=== PATIENT | female | born 1930 | race Caucasian/White ===

== ENCOUNTER 2017-12-08 19:44 | Inpatient (IN) ==
[2017-12-08] MEDS ORDERED: ONDANSETRON 4 MG/2 ML INJECTION IVP ONE (20:03)
[2017-12-08] MEDS ORDERED: NS 1,000 ML IV ONE (20:03)
[2017-12-08] MEDS ORDERED: SALINE FLUSH 10ml SYRINGE IVF PRN (20:03)
[2017-12-08] MEDS ORDERED: MORPHINE SULFATE 4mg INJECTION IVP ONE ×2 (20:03→21:34)
--- NOTE | 2017-12-08 20:45 | Emergency Department Report ---
Fall HPI - General Stated Complaint: Fall Time Seen by Provider: 12/08/17 20:03 Source: patient, family, EMS, RN notes reviewed, old records reviewed Mode of arrival: EMS Limitations: no limitations - History of Present Illness HPI Narrative: 87yo woman presented to the ER by EMS for evaluation after a fall. Pt fell and hit the back of her head; c/o headache. Also c/o severe, right hip pain. Pt has gross shortening/external rotation of her right leg. MD complaint: fall Onset (ago): minute(s) Fall from: standing Fall witnessed: no Place fall occurred: home Loss of consciousness: none Prolonged down time: no Symptoms prior to fall: none Context: tripped/slipped Location of injury: head Location of injury - extremities: Right: thigh Severity: severe Severity scale (1-10): 8 Quality: sharp, stabbing Associated symptoms (after fall): headache, unable to walk - Related Data Home Medications Medication Instructions Recorded Confirmed Acetaminophen [Tylenol] 650 mg PO BID PRN 10/19/17 12/08/17 Alendronate [Fosamax 70 mg] 70 mg PO Q7D 10/19/17 12/08/17 Atorvastatin [Lipitor] 10 mg PO HS 10/19/17 12/08/17 Calcium Carbonate/Vitamin D3 1 tab PO PM 10/19/17 12/08/17 [Calcium 500-Vit D3 200 Tablet] Cholecalciferol (Vitamin D3) 2,000 unit PO DAILY 10/19/17 12/08/17 [Vitamin D3] Cyanocobalamin (Vitamin B-12) 1,000 mcg PO DAILY 10/19/17 12/08/17 [Vitamin B-12] Metformin [Glucophage] 1,000 mg PO BID 10/19/17 12/08/17 Metoprolol Succinate [Toprol Xl] 100 mg PO WB 10/19/17 12/08/17 Rivaroxaban [Xarelto] 20 mg PO DAILY 10/19/17 12/08/17 Ondansetron [Zofran Odt] 4 mg PO QID PRN 12/08/17 12/08/17 Promethazine HCl [Phenergan] 25 mg RECTALLY PRN 12/08/17 12/08/17 Tramadol [Ultram] 50 mg PO BID PRN 12/08/17 12/08/17 Allergies Allergy/AdvReac Type Severity Reaction Status Date / Time No Known Allergies Allergy Verified 12/08/17 19:58 Review of Systems All systems: reviewed and negative except as stated Musculoskeletal: Reports: as per HPI, arthralgia. Denies: back pain, joint swelling, myalgia Neurological: Reports: as per HPI, headache. Denies: weakness, numbness, paresthesias, confusion, abnormal gait, vertigo [facility] Patient Stated Medical History Alzheimer's Disease Yes Dementia Yes Hypertension Yes Diabetes Mellitus Type 2 Yes Hx Renal Disease Yes: Chronic Kidney Disease, Kidney Cyst, Gout Anemia Yes Osteoarthritis Yes - Social History Smoking status: Unknown if ever smoked Physical Exam - Limitations Limitations: no limitations - General General appearance: alert, in no apparent distress, cachectic - Head Head exam: atraumatic, normocephalic, normal inspection - Eye Eye exam: Present: normal appearance, PERRL, EOMI. Absent: scleral icterus - ENT ENT exam: Present: normal exam, normal oropharynx, mucous membranes moist, normal external ear exam - Neck Neck exam: Present: normal inspection, full ROM, trachea midline. Absent: tenderness, lymphadenopathy - Chest Chest inspection: Present: normal inspection, symmetric chest wall rise. Absent : tenderness, rash - Respiratory Respiratory exam: Present: normal lung sounds bilaterally. Absent: respiratory distress, wheezes, stridor, prolonged expiratory phase, crackles - Cardiovascular Cardiovascular exam: Present: regular rate, irregular rhythm, normal heart sounds. Absent: rubs, gallop, clicks - Abdominal Exam Abdominal exam: Present: soft, normal bowel sounds. Absent: distention, tenderness, guarding, rebound, rigidity - Extremities Exam Extremities exam: Present: tenderness (Right hip), normal capillary refill. Absent: normal inspection, full ROM, pedal edema - Skin Skin exam: Present: warm, dry, intact. Absent: rash - Neurological Exam Neurological exam: Present: alert, oriented X3, CN II-XII intact, reflexes normal - Psychiatric Psychiatric exam: Present: normal affect, normal mood Course - Consultations Consultation #1: Ortho: Will evaluate/treat. Requests medical admission for mgmt. Time: 21:43 Consultation #2: [facility]: Time: 21:46 Vital Signs Respiratory Rate 18 12/08/17 20:35 Respiratory Rate 12/08/17 20:35 Fall - MDM Narrative Medical decision making narrative: Pt with right, intertrochanteric hip fx. No intracranial bleed. Hospitalist will admit for medical mgmt. Ortho to eval/fix. - Differential Diagnosis Likely: syncope, compression fracture (Hip fx), concussion with loss of consciousness, concussion without loss of consciousness - Medical Records Attestation: I reviewed the patient's medical records. - Lab Data Attestation: I reviewed the patient's lab results. Result diagrams: 12/08/17 20:04 12/08/17 20:04 Lab Results 12/08/17 12/08/17 Range/Units 20:04 20:04 WBC 10.1 (4.5-11.0) T/MM3 RBC 4.57 (4.00-5.20) M/MM3 Hgb 14.1 (12-16) GM/DL Hct 43.0 (36-46) % MCV 94.1 (80-100) UM3 MCH 30.9 (26-34) UUG MCHC 32.8 (31-37) GM/DL RDW Std Deviation 44.5 (36.9-50.2) FL Plt Count 190 (130-400) T/MM3 MPV 12.2 (9.4-12.4) UM3 Immature Gran % (Auto) 0.2 (0.0-0.5) % Neut % (Auto) 81.7 H (33-66) % Lymph % (Auto) 13.0 L (23-45) % Reagan % (Auto) 4.6 (0-9.0) % Eos % (Auto) 0.0 (0-4) % Baso % (Auto) 0.5 (0-2) % Neut # (Auto) 8.2 H (1.8-7.7) T/MM3 Lymph # (Auto) 1.3 (1-4.8) T/MM3 Reagan # (Auto) 0.5 (0-0.8) T/MM3 Eos # (Auto) 0.0 (0-0.5) T/MM3 Baso # (Auto) 0.1 (0-0.2) T/MM3 Abs Immat Gran (auto) 0.02 (0.00-0.03) T/MM3 Turbidity < 20 (0-20) Sodium 141 (136-146) MEQ/L Potassium 4.2 (3.6-5) MEQ/L Chloride 100 (98-107) MEQ/L Carbon Dioxide 27 (22-30) MEQ/L Anion Gap 14 (5-15) meq/L BUN 18.0 H (7-17) MG/DL Creatinine 1.1 (0.7-1.2) mg/dL GFR Calculation 47 BUN/Creatinine Ratio 16 (6-26) RATIO Glucose 142 H (65-110) MG/DL Calculated Osmolality 275 (261-280) MOSM/KG Calcium 8.8 (8.4-10.2) MG/DL Icterus Index < 2 (0-7) Specimen Hemolysis < 15 (0-25) - Radiology Data Attestation: I reviewed the patient's radiology results. Right hip: Right intertrochanteric hip fx. CXR: CT Head: FINDINGS: Brain: There are tiny hypodense foci consistent with infarcts, some old and some age indeterminate due to small size. Patchy and confluent hypodensity in the periventricular cerebral white matter. This change is nonspecific but is most likely secondary to chronic ischemia within microvascular distributions. No hemorrhage. Ventricles: Prominence of the ventricles and the cortical sulci consistent with volume loss. Bones/joints: Unremarkable. No acute fracture. Soft tissues: Unremarkable. Sinuses: Unremarkable as visualized. No acute sinusitis. Mastoid air cells: Unremarkable as visualized. No mastoid effusion. IMPRESSION: No CT evidence of acute intracranial injury. CT C-spine: IMPRESSION: 1. No evidence of acute fracture in the cervical spine. 2. A 3 mm nodular in the lumen of the trachea near its wall, can be a focal mucus pluging (vs. aspiration). Consider other possibilities under appropriate clinical settings. 3. A partially imaged very mild ground glass opacities in the medial left upper lung, may represent inflammation vs. infection, vs. atelectasis adjacent to the aortic arch. Further imaging of the rest of ches if indicated. Disposition Clinical Impression: Intertrochanteric fracture of right hip Qualifiers: Encounter type: initial encounter Fracture type: closed Fracture alignment: displaced Qualified Code(s): S72.141A - Displaced intertrochanteric fracture of right femur, initial encounter for closed fracture Fall Qualifiers: Encounter type: initial encounter Qualified Code(s): W19.XXXA - Unspecified fall, initial encounter A-fib Qualifiers: Atrial fibrillation type: chronic Qualified Code(s): I48.2 - Chronic atrial fibrillation Disposition: 02 To OBS [facility] [place] Print Language: Italian Condition: Stable Prescriptions: No Action Alendronate [Fosamax 70 mg] 70 mg PO Q7D Calcium Carbonate/Vitamin D3 [Calcium 500-Vit D3 200 Tablet] 1 tab PO PM Cyanocobalamin (Vitamin B-12) [Vitamin B-12] 1,000 mcg PO DAILY Cholecalciferol (Vitamin D3) [Vitamin D3] 2,000 unit PO DAILY Rivaroxaban [Xarelto] 20 mg PO DAILY Metformin [Glucophage] 1,000 mg PO BID Acetaminophen [Tylenol] 650 mg PO BID PRN PRN Reason: Pain Ondansetron [Zofran Odt] 4 mg PO QID PRN PRN Reason: Nausea Promethazine HCl [Phenergan] 25 mg RECTALLY PRN Tramadol [Ultram] 50 mg PO BID PRN PRN Reason: Pain Atorvastatin [Lipitor] 10 mg PO HS Metoprolol Succinate [Toprol Xl] 100 mg PO WB Referrals: Ashu Lozoya MD [Primary Care Provider] - Time of Disposition: 21:52 - Seen By: physician
[2017-12-08] MEDS ORDERED: METOPROLOL 5mg/5ml INJECTION IVP PRN (22:24)
[2017-12-08] MEDS ORDERED: ONDANSETRON 4 MG/2 ML INJECTION IVP PRN (22:47)
[2017-12-08] MEDS ORDERED: ACETAMINOPHEN 325 MG TABLET PO PRN (22:47)
[2017-12-08] MEDS: MORPHINE SULFATE 2mg INJECTION IVP PRN (22:52)
[2017-12-08] MEDS: NS 1,000 ML IV SCH (22:53)
--- NOTE | 2017-12-08 23:15 | History & Physical Report ---
History of Present Illness Date: 12/09/17 Chief complaint: Fall HPI: 87 year old female who has presented to the emergency department this evening with reports of fall at her correction. She apparently tripped, suffered a mechanical fall and hit the back of her head and right hip. She complained of right hip pain after that. Patient does take oral anticoagulation with a history of atrial fibrillation. In the ER, a CT of the head and c-spine were negative. No bleeds reported. However, a right intratrochanteric hip fracture was found. Orthopedics was notified by the ER physician, who agrees to see the patient and consult in the morning but wishes the hospitalist to be the admitting service. A urinalysis is pending. Other labs otherwise acceptable tonight. At the request of the ER provider, this patient will be placed in the hospital tonight for further evaluation and treatment of presenting issues. Please note this patient encounter was performed via the use of telemedicine technology Review of Systems All systems PM: 10-point ROS was reviewed, no additional remarkable complaints except Past Medical History Medical History: Medical History (Last Reviewed 12/09/17 @ 11:20 by Veronique Viveros MD) Alzheimers disease Atrial fibrillation Chronic kidney disease (CKD), stage III (moderate) Diabetes mellitus type 2 in nonobese Gout Hearing loss Hypercholesterolemia Hypertension Osteoporosis Vitamin B 12 deficiency Vitamin D deficiency Family History: As Above - Social History Smoking status: Unknown if ever smoked Medications Home Medications Medication Instructions Recorded Confirmed Type Acetaminophen [Tylenol] 650 mg PO BID PRN 10/19/17 12/08/17 History Alendronate [Fosamax 70 mg] 70 mg PO Q7D 10/19/17 12/08/17 History Atorvastatin [Lipitor] 10 mg PO HS 10/19/17 12/08/17 History Calcium Carbonate/Vitamin D3 1 tab PO PM 10/19/17 12/08/17 History [Calcium 500-Vit D3 200 Tablet] Cholecalciferol (Vitamin D3) 2,000 unit PO DAILY 10/19/17 12/08/17 History [Vitamin D3] Cyanocobalamin (Vitamin B-12) 1,000 mcg PO DAILY 10/19/17 12/08/17 History [Vitamin B-12] Metformin [Glucophage] 1,000 mg PO BID 10/19/17 12/08/17 History Metoprolol Succinate [Toprol Xl] 100 mg PO WB 10/19/17 12/08/17 History Rivaroxaban [Xarelto] 20 mg PO DAILY 10/19/17 12/08/17 History Ondansetron [Zofran Odt] 4 mg PO QID PRN 12/08/17 12/08/17 History Promethazine HCl [Phenergan] 25 mg RECTALLY PRN 12/08/17 12/08/17 History Tramadol [Ultram] 50 mg PO BID PRN 12/08/17 12/08/17 History Allergies Allergy/AdvReac Type Severity Reaction Status Date / Time No Known Allergies Allergy Verified 12/08/17 19:58 Exam Vital Signs: Temperature 98.6 F 12/08/17 22:40 Pulse Rate 76 12/08/17 22:47 Respiratory Rate 20 12/08/17 22:52 Blood Pressure 170/86 H 12/08/17 22:47 Pulse Oximetry 98 12/08/17 22:47 Telemetry Rhythm: A-fib Height/Weight/BMI: Height 1.6 m Weight 55.2 kg Body Mass Index 21.5 - Constitutional Present: no acute distress, well nourished, well developed - Routine HEENT Exam Head: Present: normocephalic Eye: Present: EOMI ENT: Present: mucous membranes moist - Routine Respiratory Exam Present: CTA bilaterally. Absent: accessory muscle use - Routine Cardiovascular Exam Present: irregularly irregular - Routine Abdominal Exam Present: soft, non tender - Routine Extremities Exam Absent: edema - Routine Skin Exam Present: intact. Absent: rash - Routine Neurological Exam Present: alert, oriented X3 - Routine Psychiatric Exam Present: normal affect Results - Labs CBC & Chem 7: 12/09/17 05:20 12/09/17 08:23 Assessment and Plan Assessment and Plan: Assessment Mechanical fall and right intratrochanteric hip fracture Atrial fibrillation on BB and DOAC DM Plan This patient will be placed under full admission status to the surgical floor. NPO after MN with ortho to see in the AM. Gentle IVF, symptomatic and supportive care overnight. Will follow accuchecks, and AM labs ordered as well. Will need to f/u on UA which was ordered in the ER. I have reviewed the provided list of home medications. Home medications which would be appropriate for administration at this time have been continued. Daytime rounding provider to please review and make further changes as necessary in the morning. Clinical progress will be monitored, and supportive care will be provided. Changes to the aforementioned plan will be made this evening as necessary. DVT ppx: anticoagulated on Xarelto, held for possible surgical intervention in AM Resuscitation Status: Do Not Resuscitate - Physician Narrative Physician: Veronique Viveros MD Narrative: Date: 12/09/17 Time: [address] Grande in [facility] APRN reviewed and agreed with. Patient independently evaluated, nursing facility records reviewed. Mrs. Adame is an 87-year-old female who fell at her correction striking her head and hip with resultant excruciating right hip pain. Evaluation in the emergency room revealed closed right IT fracture prompting admission to the hospital. She's been seen by Dr. Celestin and surgical intervention is planned for today. CT of the cervical spine and head revealed no acute pathology. Patient is pleasantly demented and complained of pain in her leg at the time of my assessment. She could not provide any direct history and all history was taken from available records. 97.7, 116, 116/58, 98% on 1 L supplemental O2 Cardiac rhythm irregularly irregular, anterior breath sounds clear Sensation intact bilateral feet, patient is able to wiggle her toes symmetrically; could not palpate pulses in her feet due to positioning/traction however both feet are warm. Pleasantly confused Hemoglobin 13.0, minor leukocytosis; creatinine 1.1-1.3-1.5 since hospitalization. Magnesium 1.0 Chest x-ray reviewed by myself demonstrating borderline cardiomegaly and clear lung giron. EKG also reviewed by myself revealing low-voltage, probable old septal W[place], atrial fibrillation with RVR, diffuse T-wave flattening Magnesium replacement initiated; medically stable for ORIF right hip. Increased risk bleeding due to recent use of DOAC, and general increased risk due to age, dementia, and underlying cardiac disease. Nonelective surgery however and risk of surgery outweighed by risk of nonoperative management. Hospital Course Summary Disclaimer: The visit summary below is not to be considered part of the above Progress Note. Addendum entered and electronically signed by Leda Jc APRN 12/09/17 09: 52: HPI Trinity Adame is an 87-year-old female resident of [facility] with a history of atrial fibrillation for which she takes Xarelto, and dementia. She was unable to provide any reliable history, this H&P was obtained from prior records and correction paperwork. She presented to the emergency department on 12/08/17 after tripping and falling. She reportedly struck her head and injured her right hip. She already had previous bruises from 12/05/17 to her coccyx, left elbow, right hand, and bilateral shoulder blades. In the emergency department, she was diagnosed with an intertrochanteric right hip fracture. Head CT was negative for acute hemorrhage or infarct. C-spine CT was negative for fracture. Chest x-ray was negative. A Babb catheter was inserted. Labs were initially unremarkable, but the following morning, 12/09/17, her white count increased to 13.6, and BUN and creatinine also increased. BUN went up from 18-25 and creatinine started at 1.1 and increased to 1.5. Magnesium level was low at 1.0. She was admitted under the hospitalist service and a consult has been placed to Dr. Celestin. ROS: unobtainable from patient PMH Atrial fibrillation, anticoagulated on Xarelto. Hypertension Dyslipidemia. Type 2 diabetes. Chronic kidney disease. Gait instability, history of falling Osteoporosis. Vitamin D deficiency Vitamin B deficiency Dementia Gout. History of UTI Sensorineural hearing loss PSH Unknown and unobtainable from patient Family history Unknown and unobtainable from patient Social history Nonsmoker. PCP: Dr. Lozoya Exam General: Petite, elderly woman in no acute distress after analgesics were given. HEENT: Pupils equal, sclera anicteric and noninjected, mucous membranes very dry CV: Irregularly irregular Lungs: CTAB Abdomen: + bowel sounds, soft, nontender, nondistended Ext: No edema, right leg in traction Assessment Right hip IT fracture Leukocytosis, suspect stress reaction Hypomagnesemia Atrial fibrillation, anticoagulated on Xarelto. Periods of RVR up to the 120s. Hypertension Dyslipidemia. Type 2 diabetes. Chronic kidney disease. Gait instability, history of falling Osteoporosis. Vitamin D & B deficiencies Dementia Gout. History of UTI Sensorineural hearing loss Plan Agree with inpatient admission. D/W Dr. Celestin - ok to give metoprolol PO this am for A-fib with RVR. Check EKG. Per Dr. Celestin - would prefer to get CT scan of hip to determine surgical approach. If he's able to do a gamma nail, could take her to surgery this afternoon. However, if a femoral head replacement is needed, he'd prefer to wait until tomorrow since she's anticoagulated. Xarelto has been held. Replace Mg IV. K is normal. IV NS for elevated BUN/creatinine and since pt is NPO. Hold oral meds except for metoprolol at this time. Monitor blood sugars. Lauren Liu records reviewed. Patient is DNR. Dr. Lozoya notified. Discussed with Dr. Viveros, and the nursing staff. High-risk medications in use. Addendum entered and electronically signed by Leda Jc APRN 12/09/17 10: 52: Due to underlying medical conditions especially A-fib, pt carries at least a moderate risk for surgery. However, the risks of not proceeding with surgery outweigh the benefits. Pt is medically cleared for surgery, would recommend replacing mag before surgery and continue to monitor HR -- she may need IV BB to slow rate, as long as BP allows.
[2017-12-09] MEDS: MORPHINE SULFATE 2mg INJECTION IVP PRN ×5 (02:47→22:11)
--- NOTE | 2017-12-09 08:04 | XRay Report ---
Indication: Hip fx PROCEDURE: XR chest 1V: Encounter: Initial Comparison: None FINDINGS: The lungs are clear. There is no abnormal airspace opacity, pleural effusion or pneumothorax identified. The heart size, pulmonary vasculature and mediastinum are within normal limits. Old healed right fifth lateral rib fracture. IMPRESSION: No acute cardiopulmonary abnormality. .
--- NOTE | 2017-12-09 08:05 | XRay Report ---
Indication: fall PROCEDURE: XR pelvis w/ 2 view RT hip: Encounter: Initial Comparison: None Findings/ Impression: Closed posttraumatic mildly displaced intertrochanteric fracture of the right femur. No additional acute fracture or dislocation seen. Mild to moderate degenerative changes in both hips and the pubic symphysis. Surgical clips in the pelvis. Mild apex anterior angulation of the fracture on the crosstable lateral view. .
--- NOTE | 2017-12-09 08:07 | CT Scan Report ---
Indication: fall PROCEDURE: CT head/brain wo con: Encounter: Initial Comparison: October 19, 2017 Technique: Axial CT images through the head were performed without contrast. Iterative Reconstruction dose reducing technique was utilized. FINDINGS: Moderate atrophy. The ventricles are of normal size, shape, and configuration for the patient's age. There is no evidence of acute intracranial hemorrhage, midline displacement, or mass effect. There are extensive areas of low attenuation in the white matter which most likely represent changes of chronic microvascular ischemia. The CT attenuation of the brain parenchyma is otherwise normal within the cerebellum, brain stem, and cerebral hemispheres. The tympanic cavities and mastoid air cells are free of appreciable disease. There are no definite fractures of the skull base, calvarium, or visualized portion of the midface. IMPRESSION: No CT evidence of acute traumatic intracranial injury. There is a preliminary report by virtual radi[employer]. .
--- NOTE | 2017-12-09 08:09 | CT Scan Report ---
Indication: fall PROCEDURE: CT cervical spine wo con: Encounter: Initial Comparison: None Technique: Axial CT images through the cervical spine were performed without contrast. Coronal and sagittal reformatted images were also obtained. Automated Exposure Control and Iterative Reconstruction dose reducing techniques were utilized. FINDINGS: The alignment of the cervical spine is normal. Multilevel degenerative changes are present. There is no evidence of acute fracture or subluxation of the cervical spine. The atlantoaxial articulation, dens, and upper cervical spine demonstrate no subluxation. IMPRESSION: No acute traumatic abnormality of the cervical spine. There is a preliminary report by [facility] [employer]. .
--- NOTE | 2017-12-09 09:14 | XRay Report ---
Indication: hip fx PROCEDURE: XR hip RT min 2V: Encounter: Initial Comparison: December 08, 2017 Findings: Mildly displaced intertrochanteric right femoral fracture is again seen in stable alignment. No new fractures seen. Impression: Stable alignment of the right femoral fracture. .
--- NOTE | 2017-12-09 09:36 | XRay Report ---
Indication: HIP FX PROCEDURE: XR hip RT 1V: Encounter: Initial Comparison: December 09, 2017 at 0802 Findings/ Impression: Slight decrease in foreshortening at the intertrochanteric femoral fracture. .
--- NOTE | 2017-12-09 10:56 | Orthopedic Consult Note ---
Orthopedic Consultation HPI - Consultation Info Consult Date: 12/09/17 Attending Physician: Veronique Viveros MD - History of Present Illness 87 year old female who has presented to the emergency department last evening with reports of fall at her half-way.She is unsure how she fell, she answers questions intermittently with short phrases. She apparently tripped, suffered a fall and hit the back of her head and right hip. She complained of right hip pain after that. She does have atrial fibrillation is anticoagulated with xalerto. In the ER, a CT of the head and c-spine were negative. No bleeds reported. However, a right intratrochanteric hip fracture was found. Right leg significantly shortened and internally rotated, patient was placed in bucks traction. Review of Systems - Constitutional Constitutional: Present: as per HPI - Cardiovascular Cardiovascular: Absent: chest pain - Respiratory Respiratory: Absent: cough, dyspnea - Gastrointestinal Gastrointestinal: Absent: nausea, vomiting - Musculoskeletal Musculoskeletal: Present: as per HPI PFSH Patient Stated Medical History Alzheimer's Disease Yes Dementia Yes Hypertension Yes Diabetes Mellitus Type 2 Yes Hx Renal Disease Yes: Chronic Kidney Disease, Kidney Cyst, Gout Anemia Yes Osteoarthritis Yes Clinic Medical History (Last Updated 12/09/17 @ 10:05 by Veronique Viveros MD) Alzheimers disease (Acute Medical) Atrial fibrillation (Acute Medical) Chronic kidney disease (CKD), stage III (moderate) (Acute Medical) Diabetes mellitus type 2 in nonobese (Acute Medical) Gout (Acute Medical) Hearing loss (Acute Social Hx) Hypercholesterolemia (Acute Medical) Hypertension (Acute Medical) Osteoporosis (Acute Medical) Vitamin B 12 deficiency (Acute Medical) Vitamin D deficiency (Acute Medical) - Social History Smoking status: Unknown if ever smoked Medications Home Medications Medication Instructions Recorded Confirmed Type Acetaminophen [Tylenol] 650 mg PO BID PRN 10/19/17 12/08/17 History Alendronate [Fosamax 70 mg] 70 mg PO Q7D 10/19/17 12/08/17 History Atorvastatin [Lipitor] 10 mg PO HS 10/19/17 12/08/17 History Calcium Carbonate/Vitamin D3 1 tab PO PM 10/19/17 12/08/17 History [Calcium 500-Vit D3 200 Tablet] Cholecalciferol (Vitamin D3) 2,000 unit PO DAILY 10/19/17 12/08/17 History [Vitamin D3] Cyanocobalamin (Vitamin B-12) 1,000 mcg PO DAILY 10/19/17 12/08/17 History [Vitamin B-12] Metformin [Glucophage] 1,000 mg PO BID 10/19/17 12/08/17 History Metoprolol Succinate [Toprol Xl] 100 mg PO WB 10/19/17 12/08/17 History Rivaroxaban [Xarelto] 20 mg PO DAILY 10/19/17 12/08/17 History Ondansetron [Zofran Odt] 4 mg PO QID PRN 12/08/17 12/08/17 History Promethazine HCl [Phenergan] 25 mg RECTALLY PRN 12/08/17 12/08/17 History Tramadol [Ultram] 50 mg PO BID PRN 12/08/17 12/08/17 History Allergies Allergy/AdvReac Type Severity Reaction Status Date / Time No Known Allergies Allergy Verified 12/08/17 19:58 Exam - Constitutional Vital Signs: Temperature 97.4 F 12/09/17 07:23 Pulse Rate 101 H 12/09/17 07:49 Respiratory Rate 16 12/09/17 07:23 Blood Pressure 139/70 12/09/17 07:23 Pulse Oximetry 93 12/09/17 07:23 General: cooperative, frail appearing Orientation: alert, confused - RLE Postoperative Appearance: neurovascullary intact to extremities Vascular: dorsalis pedis pulse within normal limits, capillary refill <2 seconds Right Lower Extremity comments: Right lower leg shortened, currently in bucks traction. - Respiratory Respiratory Exam: CTA bilaterally - Cardiac Cardiovascular exam: irregular rhythm - Labs Result Diagrams: 12/09/17 05:20 12/09/17 08:23 Abnormal lab results 12/08/17 12/08/17 12/08/17 Range/Units 20:04 20:04 23:33 WBC (4.5-11.0) T/MM3 MPV (9.4-12.4) UM3 Neut % (Auto) 81.7 H (33-66) % Lymph % (Auto) 13.0 L (23-45) % Neut # (Auto) 8.2 H (1.8-7.7) T/MM3 Monocytes % (Manual) (0-9.0) % Neutrophils # (Manual) (1.8-7.7) T/MM3 Monocytes # (Manual) (0-0.8) T/MM3 Potassium (3.6-5) MEQ/L BUN 18.0 H (7-17) MG/DL Creatinine (0.7-1.2) mg/dL Glucose 142 H (65-110) MG/DL Calculated Osmolality (261-280) MOSM/KG Calcium (8.4-10.2) MG/DL Magnesium (1.6-2.3) MG/DL Specimen Hemolysis (0-25) Ur Specific [place] >=1.030 H (1.015-1.025) Urine Protein 1+ A (NEGATIVE) Urine Ketones 2+ A (NEGATIVE) 12/09/17 12/09/17 12/09/17 Range/Units 05:20 05:20 08:23 WBC 13.6 H (4.5-11.0) T/MM3 MPV 13.3 H (9.4-12.4) UM3 Neut % (Auto) (33-66) % Lymph % (Auto) (23-45) % Neut # (Auto) (1.8-7.7) T/MM3 Monocytes % (Manual) 10.0 H (0-9.0) % Neutrophils # (Manual) 9.0 H (1.8-7.7) T/MM3 Monocytes # (Manual) 1.4 H (0-0.8) T/MM3 Potassium 5.4 H D (3.6-5) MEQ/L BUN 25.0 H 25.0 H (7-17) MG/DL Creatinine 1.3 H D 1.5 H D (0.7-1.2) mg/dL Glucose 124 H 116 H (65-110) MG/DL Calculated Osmolality 282 H (261-280) MOSM/KG Calcium 7.8 L D 7.6 L (8.4-10.2) MG/DL Magnesium 1.0 L 1.0 L (1.6-2.3) MG/DL Specimen Hemolysis 143 H (0-25) Ur Specific [place] (1.015-1.025) Urine Protein (NEGATIVE) Urine Ketones (NEGATIVE) H & H 12/08/17 12/09/17 Range/Units 20:04 05:20 Hgb 14.1 13.0 (12-16) GM/DL Hct 43.0 39.5 (36-46) % Impression and Recommendation (1) Intertrochanteric fracture of right hip Current visit: Yes Qualifiers: Encounter type: initial encounter Fracture type: closed Fracture alignment: displaced Qualified Code(s): S72.141A - Displaced intertrochanteric fracture of right femur, initial encounter for closed fracture Status: Acute Karimi's traction applied and right hip xray repeated. ORIF with long gamma nail today, Dr. Celestin will discuss surgery further with family including risks and possible complications noe currently is on hold. Patient NPO. Hospital Course Summary Disclaimer: The visit summary below is not to be considered part of the above Progress Note.
[2017-12-09] MEDS: NS 1,000 ML IV SCH ×3 (11:54→21:01)
[2017-12-09] MEDS ORDERED: NS FLUSH BAG 500ml IV PRN (12:09)
[2017-12-09] MEDS: MAGNESIUM SULFATE 1gm PREMIX 1 GM/100 ML BAG IV SCH ×4 (12:41→15:53)
--- NOTE | 2017-12-09 12:56 | Anesthesia Preoperative Report ---
Anesthesia Preoperative Record - Date and Time Date: 12/09/17 Preoperative Diagnosis: Hip Fx Proposed Procedure: orif hip intertrochanteric fixation NPO Since Date: 12/09/17 NPO Since Time: 05:00 Allergies/Adverse Reactions: Allergies Allergy/AdvReac Type Severity Reaction Status Date / Time No Known Allergies Allergy Verified 12/08/17 19:58 - Vital Signs Vital Signs: Temperature 97.7 F 12/09/17 11:26 Pulse Rate 122 H 12/09/17 12:52 Respiratory Rate 18 12/09/17 12:52 Blood Pressure 112/64 12/09/17 12:52 Pulse Oximetry 93 12/09/17 12:52 Height and Weight: Height 1.6 m Weight 56.8 kg Body Mass Index 21.5 - Medications Inpatient Medications: Current Medications Acetaminophen (Tylenol) 325 - 650 mg PO Q5H PRN PRN Reason: Discomfort Sodium Chloride (Normal Saline) 1,000 mls @ 75 mls/hr IV .[id number] JEANNIE Last Admin: 12/09/17 11:54 Dose: 75 mls/hr Magnesium Sulfate/Dextrose (Mag Sulf 1gm Premix) 1 gm in 100 mls @ 100 mls/hr IV Q1H JEANNIE Stop: 12/09/17 13:56 Last Admin: 12/09/17 12:41 Dose: 100 mls/hr Metoprolol Succinate (Toprol Xl) 100 mg PO WB [facility] Last Admin: 12/09/17 08:53 Dose: 100 mg Morphine Sulfate (Morphine Sulf 2 Mg Inj) 1 - 2 mg IVP Q2H PRN PRN Reason: Pain Last Admin: 12/09/17 07:11 Dose: 2 mg Ondansetron HCl (Zofran) 4 mg IVP Q6H PRN PRN Reason: Nausea &/or vomiting Sodium Chloride (Iv Flush) 10 - 80 ml IVF PRN PRN PRN Reason: Flushing Last Admin: 12/08/17 20:36 Dose: 10 ml Sodium Chloride (Normal Saline) 500 ml IV PRN PRN Last Admin: 12/09/17 12:42 Dose: 500 ml Home Medications: Home Medications Medication Instructions Recorded Confirmed Type Acetaminophen [Tylenol] 650 mg PO BID PRN 10/19/17 12/08/17 History Alendronate [Fosamax 70 mg] 70 mg PO Q7D 10/19/17 12/08/17 History Atorvastatin [Lipitor] 10 mg PO HS 10/19/17 12/08/17 History Calcium Carbonate/Vitamin D3 1 tab PO PM 10/19/17 12/08/17 History [Calcium 500-Vit D3 200 Tablet] Cholecalciferol (Vitamin D3) 2,000 unit PO DAILY 10/19/17 12/08/17 History [Vitamin D3] Cyanocobalamin (Vitamin B-12) 1,000 mcg PO DAILY 10/19/17 12/08/17 History [Vitamin B-12] Metformin [Glucophage] 1,000 mg PO BID 10/19/17 12/08/17 History Metoprolol Succinate [Toprol Xl] 100 mg PO WB 10/19/17 12/08/17 History Rivaroxaban [Xarelto] 20 mg PO DAILY 10/19/17 12/08/17 History Ondansetron [Zofran Odt] 4 mg PO QID PRN 12/08/17 12/08/17 History Promethazine HCl [Phenergan] 25 mg RECTALLY PRN 12/08/17 12/08/17 History Tramadol [Ultram] 50 mg PO BID PRN 12/08/17 12/08/17 History Is Patient on Beta Anthony?: No - Medical History Cardiovascular: Reports: Abnormal EKG (AFib), Arrhythmia, Hypertension Neuro/Musculoskeletal: Reports: Other (dementia) Renal/Endocrine: Reports: Diabetes Mellitus Type 2 - Surgical History Anesthesia Reactions: None Hx Family Anesthesia Reaction: No History of Motion Sickness: No - Social History Smoking Status: Never smoker Hx Chewing Tobacco Use: No Second Hand Exposure: No Substance Use Type: does not use Alcohol Intake Frequency: does not drink - Pertinent Findings Laboratory: CBC and BMP 12/09/17 05:20 12/09/17 08:23 BMP 12/08/17 12/09/17 12/09/17 20:04 05:20 08:23 Sodium 141 142 144 Potassium 4.2 5.4 H D 4.2 D Chloride 100 107 D 104 Carbon Dioxide 27 23 26 BUN 18.0 H 25.0 H 25.0 H Creatinine 1.1 1.3 H D 1.5 H D Glucose 142 H 124 H 116 H Calcium 8.8 7.8 L D 7.6 L Urine 12/08/17 Range/Units 23:33 Urine Color Yellow (YELLOW) Urine Clarity Sl cloudy Urine pH 6.0 (5.0-8.0) Ur Specific [place] >=1.030 H (1.015-1.025) Urine Protein 1+ A (NEGATIVE) Urine Glucose (UA) Negative (NEGATIVE) EKG: A-fib - Physical Exam Respiratory Exam: Present: lungs clear Cardiovascular Exam: Present: regular rate and rhythm, no murmur - Airway Assessment Mallampati Score: II TMD: 3 Fingerbreadths Neck Extension: fair Teeth: upper dentures, lower dentures Overall Assessment: no airway concerns - ASA ASA Score: 3 - Plan Anesthesia: General TIVA, General Inhalation Gases - Discussion Discussion: Discussed risks/options/alternatives of anesthesia and questions answered. Patient consents. Nursing pain assessment noted. Present for Discussion: family member Attestation Statement: Prior to the delivery of any anesthetic medication, I examined the patient, developed the plan, obtained the patient's consent and discussed the risk and benefits of the procedure with the patient/guardian. - Additional Information Seen by Anesthesia: Yes
--- NOTE | 2017-12-09 12:56 | Progress Note ---
Progress Note: Please refer to addendum's to last night's H&P for today's updates. Patient cleared for emergent repair of right IT fracture.
[2017-12-09] MEDS ORDERED: FentaNYL 250 MCG/5 ML INJECTION ONE (13:18)
[2017-12-09] MEDS ORDERED: ROCURONIUM 50 MG/5 ML INJECTION IVP ONE (13:20)
[2017-12-09] MEDS ORDERED: LIDOCAINE 2% (100mg/5mL) 5ml PF SDV ONE (13:20)
[2017-12-09] MEDS ORDERED: PROPOFOL 500 MG/50 ML VIAL ONE (13:20)
[2017-12-09] MEDS ORDERED: PROPOFOL 20 ML ONE (13:20)
[2017-12-09] MEDS ORDERED: PHENYLEPHRINE INJ 10 MG/ML VIAL IV ONE (13:37)
[2017-12-09] MEDS ORDERED: SALINE FLUSH 10ml SYRINGE ONE ×2 (13:37→13:54)
[2017-12-09] MEDS ORDERED: BUPIVACAINE 0.25%/EPI 1:200,000 30ml SDV ONE (13:48)
[2017-12-09] MEDS ORDERED: LIDOCAINE 1% (10mg/ml) 30ml SDV INJ ONE (13:49)
[2017-12-09] MEDS ORDERED: CEFAZOLIN 1 G INJECTION IVP ONE (13:53)
[2017-12-09] MEDS ORDERED: CEFAZOLIN 1 G INJECTION ONE (13:54)
[2017-12-09] MEDS ORDERED: TRANEXAMIC ACID 3gm/NS 45ml IRR MIX IR ONE (14:00)
[2017-12-09] MEDS ORDERED: LIDO 1% 30ml/BUPIV 0.25%-EPI 1:200T 30ml MIXTURE (60ml total) ID ONE (14:34)
--- NOTE | 2017-12-09 15:35 | Remote Fluorsocopy Report ---
Indication: RIGHT HIP ORIF PROCEDURE: RF hip RT 2 view: Encounter: Initial Comparison: December 09, 2017 Findings: Seven fluoroscopic spot images are submitted for interpretation. Images show open reduction and internal fixation of the intertrochanteric right femoral fracture with placement of an medullary nail, compression screw and two distal interlocking screws. Improved alignment of the fracture fragments. Impression: Fluoroscopy as above. Fluoroscopy time is 237.2 seconds. Fluoroscopy dose is 4120 mRad. .
[2017-12-09] MEDS ORDERED: TRAMADOL 50 MG TABLET PO PRN (15:47)
[2017-12-09] MEDS ORDERED: NOZIN NASAL SWAB NAS ONE (15:47)
--- NOTE | 2017-12-09 15:50 | Anesthesia Postoperative Note ---
- Date and Time Date: 12/09/17 Time: 15:49 - Status Patient Participated in Evaluation: Patient Participated in Person Vital Signs: Temperature 97.1 F 12/09/17 15:38 Pulse Rate 104 H 12/09/17 15:35 Respiratory Rate 10 12/09/17 15:35 Blood Pressure 145/64 H 12/09/17 15:35 Pulse Oximetry 96 12/09/17 15:35 Respiratory Function: Airway Patent Cardiovascular Function: Irregular Pulse EKG: A-fib Mental Status: Alert and Oriented Pain Intensity: 0 Hydration: Taking PO Fluids Complications During Recover: None Apparent - Follow-Up Instructions Instructions: Per Surgeon
[2017-12-09] MEDS: NOZIN NASAL SWAB NAS SCH ×3 (15:53→22:56)
--- NOTE | 2017-12-09 16:52 | Operative Note ---
DATE OF SURGERY 12/09/2017 PREOPERATIVE DIAGNOSIS Right three-part intertrochanteric hip fracture. POSTOPERATIVE DIAGNOSIS Right three-part intertrochanteric hip fracture. PROCEDURE Open reduction internal fixation with cephalomedullary device, right hip. SURGEON John Celestin MD COOLING TOWER OPERATOR Francisco Del Rosario PA-C ANESTHESIA General. COMPLICATIONS None. EBL/FLUIDS Please see anesthetic record. DESCRIPTION OF PROCEDURE Mrs. Adame and her right hip were identified and marked in the preoperative holding area. She was brought back to the operating suite and placed supine on the operating table. She was placed under general anesthesia. Both feet were then placed in well-padded traction boots. The left leg was placed into extension without traction. The right leg was placed into traction and internal rotation. Fluoroscopic imaging confirmed that we were able to get a good reduction. Local injection was used at every incision site. A 3-cm incision was made proximal to the greater trochanter. The proximal femur was then opened over a guide pin. I then passed a long guide pin down the femoral shaft. We reamed to a 14.5. I selected a 13 x 280 mm nail and passed it over the guide pin to help reduce the fracture site. I placed a Rosado laterally on the cortex of the femur to push it medially. I also used a bone hook around the femoral neck to help reduce the calcar. With these in position I then placed a 90-mm lag bolt over a guide pin into a center-center location in the femoral head. The compression device was then utilized to provide compression at the fracture site. I then removed the aiming arm. Two screws were placed distally to lock the nail from lateral to medial using perfect-mcgrath technique through two poke- hole incisions. All wounds were thoroughly irrigated before being closed in layers. I did inject 3 g of TXA at the fracture site with an 18-gauge spinal needle after the incisions were closed. Multiple fluoroscopic images were also taken to ensure good fracture reduction and hardware placement which we were happy with. The drapes were then removed. She was allowed to awaken from general anesthesia and taken to the recovery room under the care of Anesthesia. She tolerated the procedure well. There were no complications. BALDEV
[2017-12-09] MEDS ORDERED: METOPROLOL 5mg/5ml INJECTION IVP ONE (18:03)
[2017-12-09] MEDS: CEFAZOLIN 1 G in NS 100 ML IV SCH (21:02)
[2017-12-09] MEDS ORDERED: DiltiaZEM 25 MG/5 ML INJECTION IVP PRN (23:37)
[2017-12-10] MEDS: NS 1,000 ML IV SCH ×4 (02:43→23:35)
[2017-12-10] MEDS: CEFAZOLIN 1 G in NS 100 ML IV SCH (05:02)
--- NOTE | 2017-12-10 08:17 | Orthopedic Progress Note ---
Date: Date: 12/10/17 Time: 812 Subjective/Severity of Illness: Trinity appears comfortable. She says "good morning" but does not talk more than that. Dressing is dry. No concerns at this time. Orthopedic Exam Vital signs: Temperature 97.0 F 12/10/17 04:00 Pulse Rate 95 12/10/17 04:00 Respiratory Rate 16 12/10/17 04:00 Blood Pressure 116/62 12/10/17 04:00 Pulse Oximetry 93 12/10/17 04:00 - Constitutional General Appearance: Present: alert, cooperative, no acute distress - Respiratory Exam Present: non-labored - Cardiovascular Exam Present: pedal pulses intact - Extremities Exam Present: pulses intact. Absent: calf tenderness - Dressing Dressing: dry, intact, no drainage - Integumentary Exam Present: pink, warm, dry - Neurological Exam Present: no deficits - Psychiatric Exam Present: alert - Labs Result Diagrams: 12/10/17 04:32 12/10/17 04:32 Abnormal lab results 12/09/17 12/10/17 12/10/17 Range/Units 08:23 04:32 04:32 RBC 3.17 L (4.00-5.20) M/MM3 Hgb 9.8 L D (12-16) GM/DL Hct 31.1 L D (36-46) % MPV 12.7 H (9.4-12.4) UM3 Neut % (Auto) 81.2 H (33-66) % Lymph % (Auto) 10.1 L (23-45) % Neut # (Auto) 8.8 H (1.8-7.7) T/MM3 [place] # (Auto) 0.9 H (0-0.8) T/MM3 Chloride 108 H (98-107) MEQ/L BUN 25.0 H 29.0 H (7-17) MG/DL Creatinine 1.5 H D 1.4 H D (0.7-1.2) mg/dL Glucose 116 H 177 H (65-110) MG/DL Calculated Osmolality 282 H (261-280) MOSM/KG Calcium 7.6 L 6.7 L D (8.4-10.2) MG/DL Magnesium 1.0 L 2.5 H D (1.6-2.3) MG/DL Specimen Hemolysis 59 H (0-25) H & H 12/08/17 12/09/17 12/10/17 Range/Units 20:04 05:20 04:32 Hgb 14.1 13.0 9.8 L D (12-16) GM/DL Hct 43.0 39.5 31.1 L D (36-46) % Orthopedic Assessment and Plan (1) Intertrochanteric fracture of right hip Status: Acute Qualifiers: Encounter type: initial encounter Fracture type: closed Fracture alignment: displaced Qualified Code(s): S72.141A - Displaced intertrochanteric fracture of right femur, initial encounter for closed fracture Assessment and Plan: Begin PT / OT. WBAT. May resume Xarelto. SCDs for added DVT coverage. Hgb 9.8 , monitor Will need ortho f/u in 3 weeks. - Anticoagulation Therapy Anticoagulation: Resume home anticoagulant Hospital Course Summary Disclaimer: The visit summary below is not to be considered part of the above Progress Note.
[2017-12-10] MEDS ORDERED: RIVAROXABAN 20 MG TABLET PO SCH (09:00)
[2017-12-10] MEDS: NOZIN NASAL SWAB NAS SCH ×3 (09:04→23:25)
[2017-12-10 13:11] VITALS: BMI 22.1
--- NOTE | 2017-12-10 14:42 | Progress Note ---
- Date 12/10/17 Subjective: Patient is seen this morning resting in bed. She denies pain at this time. No shortness of breath, nausea or vomiting reported. Nurses report she has been having some visual hallucinations. She does not volunteer information, only answers questions yes/no, but tells me to "watch out behind you" as she was staring at the ceiling/wall behind me. Objective Vital signs: Temperature 97.9 F 12/10/17 12:17 Pulse Rate 87 12/10/17 12:17 Respiratory Rate 16 12/10/17 12:17 Blood Pressure 109/64 12/10/17 12:17 Pulse Oximetry 93 12/10/17 12:17 Height/Weight/BMI: Height 1.6 m Weight 56.8 kg Body Mass Index 22.1 - Constitutional Present: no acute distress, well nourished, well developed - Routine HEENT Exam Head: Present: normocephalic, atraumatic - Routine Respiratory Exam Present: CTA bilaterally. Absent: wheezes - Routine Cardiovascular Exam Present: irregular rhythm - Routine Abdominal Exam Present: soft, non distended, non tender - Routine Extremities Exam Present: no edema, normal capillary refill - Routine Skin Exam Present: dry, warm - Routine Neurological Exam Present: alert Patient does not know why she is here or where she is. Speaks very little. - Routine Lymphatic Exam Lymphatic: Absent: adenopathy - Routine Psychiatric Exam Present: cooperative Results - Labs CBC & Chem 7: 12/11/17 08:52 12/11/17 08:51 Assessment and Plan Assessment and Plan: Assessment Right hip IT fracture following mechanical fall-s/p open reduction internal fixation with cephalo-medullary device, right hip Leukocytosis, suspect stress reaction-resolved Postop acute blood loss anemia DHRUV-not POA Hypomagnesemia Atrial fibrillation, anticoagulated on Xarelto. Hypertension Dyslipidemia. Type 2 diabetes. Chronic kidney disease. Gait instability, history of falling Osteoporosis. Vitamin D & B deficiencies Dementia Gout. History of UTI Sensorineural hearing loss Plan Postop day #1-ORIF with cephalo-medullary device, right hip by Dr. Celestin Begin PT/OT and weight-bear as tolerated per ortho. Continue Babb until pt has more mobility. Resume Xarelto for atrial fibrillation. Hgb 9.8 today down from 13.0 post-op - will continue to follow. Blood sugars are reviewed and are elevated. He metformin is currently on hold. Patient is not taking po well at this point, will continue to hold metformin and start sliding scale insulin. Blood pressures are stable, pulse improved today. Continue to monitor. On metoprolol 100 mg daily. Continue IVF's for DHRUV and not taking po well at this time. Based on creatinine clearance by pharmacist (even before her DHRUV) her dosing of Xarelto should be 15mg qd instead of 20qd. This change is made to orders. Addendum note by Ton Samuel MD Seen and examined patient on same day as the above note. Nurse practitioner Nikki Leyva's note, physical, assessment and plan. Exam: Gen.:no apparent distress, arousability to disoriented HEENT: normocephalic atraumatic, oral mucosa moist and will perfused neck: no lymphadenopathy no jugular venous distention respiratory: there to auscultation bilaterally with good excursion cardiovascular: cardiovascular S1 S2 with occasional ectopic beats abdomen/GI: nontender nondistended extremities: postsurgical gamma nail shows no surrounding erythema skin/integument: good perfusion no edema neuro: awake and confused psych: confused. Question if this is a baseline No apparent complications the gamma nail however patient is very confused. Patient will be kept tomorrow and we will assess to see if she is more responsive and able to transfer back to halfway. Documented on [facility] speech to text. Efforts to correct speech recognition errors performed, but variation may exist - Physician Narrative Narrative: Date: 12/10/17 Time: 1439 Hospital Course Summary Disclaimer: The visit summary below is not to be considered part of the above Progress Note. Hospital Course: 12/09/17 Admit (admitted late on 12/08/17), IP for surgical repair of hip. Surgery performed 12/09/17. D/W Dr. Celestin - ok to give metoprolol PO this am for A-fib with RVR. Check EKG. Per Dr. Celestin - would prefer to get CT scan of hip to determine surgical approach. If he's able to do a gamma nail, could take her to surgery this afternoon. However, if a femoral head replacement is needed, he'd prefer to wait until tomorrow since she's anticoagulated. Xarelto has been held. Replace Mg IV. K is normal. IV NS for elevated BUN/creatinine and since pt is NPO. Hold oral meds except for metoprolol at this time. Monitor blood sugars. Lauren Liu records reviewed. Patient is DNR. Dr. Lozoya notified. Discussed with Dr. Viveros, and the nursing staff. High-risk medications in use. 12/10/17 Postop day #1-ORIF with cephalo-medullary device, right hip by Dr. Celestin Begin PT/OT and weight-bear as tolerated per ortho. Continue Babb until pt has more mobility. Resume Xarelto for atrial fibrillation. Hgb 9.8 today down from 13.0 post-op - will continue to follow. Blood sugars are reviewed and are elevated. He metformin is currently on hold. Patient is not taking po well at this point, will continue to hold metformin and start sliding scale insulin. Blood pressures are stable, pulse improved today. Continue to monitor. On metoprolol 100 mg daily. Based on creatinine clearance by pharmacist (even before her DHRUV) her dosing of Xarelto should be 15mg qd instead of 20qd. This change is made to orders.
[2017-12-10] MEDS: INSULIN ASPART 100unit/ml INJECTION SQ PRN ×2 (18:18→20:45)
[2017-12-10] MEDS: HYDROCODONE/APAP 5mg/325mg TABLET PO PRN (23:24)
[2017-12-11] MEDS: NS 1,000 ML IV SCH ×4 (05:41→23:12)
[2017-12-11] MEDS: INSULIN ASPART 100unit/ml INJECTION SQ PRN ×3 (05:54→21:23)
--- NOTE | 2017-12-11 07:44 | Orthopedic Progress Note ---
Date: Date: 12/11/17 Time: 740 Subjective/Severity of Illness: Trinity is much more alert today. She thought she was in [place] and isn't sure of the month. She is talkative this AM and talks of her brother who is a [employer] near [place]. Denies much hip pain and reports no CP or SOA. Orthopedic Exam Vital signs: Temperature 97.0 F 12/10/17 04:00 Pulse Rate 95 12/10/17 04:00 Respiratory Rate 16 12/10/17 04:00 Blood Pressure 116/62 12/10/17 04:00 Pulse Oximetry 93 12/10/17 04:00 - Constitutional General Appearance: Present: alert, cooperative, no acute distress - Respiratory Exam Present: non-labored - Cardiovascular Exam Present: pedal pulses intact - Extremities Exam Present: no edema, pulses intact. Absent: calf tenderness - Dressing Dressing: dry, intact, no drainage - Integumentary Exam Present: pink, warm, dry - Neurological Exam Present: no deficits - Psychiatric Exam Present: alert. Absent: oriented - Labs Result Diagrams: 12/10/17 04:32 12/10/17 04:32 H & H 12/08/17 12/09/17 12/10/17 Range/Units 20:04 05:20 04:32 Hgb 14.1 13.0 9.8 L D (12-16) GM/DL Hct 43.0 39.5 31.1 L D (36-46) % Orthopedic Assessment and Plan (1) Intertrochanteric fracture of right hip Status: Acute Qualifiers: Encounter type: initial encounter Fracture type: closed Fracture alignment: displaced Qualified Code(s): S72.141A - Displaced intertrochanteric fracture of right femur, initial encounter for closed fracture Assessment and Plan: Continue PT / OT. WBAT. May resume Xarelto. SCDs for added DVT coverage. Plan f/u 12/31/17 for xray check. Hospital Course Summary Disclaimer: The visit summary below is not to be considered part of the above Progress Note. Hospital Course: 12/09/17 Admit (admitted late on 12/08/17), IP for surgical repair of hip. Surgery performed 12/09/17. D/W Dr. Fawad hickman to give metoprolol PO this am for A-fib with RVR. Check EKG. Per Dr. Celestin - would prefer to get CT scan of hip to determine surgical approach. If he's able to do a gamma nail, could take her to surgery this afternoon. However, if a femoral head replacement is needed, he'd prefer to wait until tomorrow since she's anticoagulated. Xarelto has been held. Replace Mg IV. K is normal. IV NS for elevated BUN/creatinine and since pt is NPO. Hold oral meds except for metoprolol at this time. Monitor blood sugars. [facility] records reviewed. Patient is DNR. Dr. Lozoya notified. Discussed with Dr. Viveros, and the nursing staff. High-risk medications in use. 12/10/17 Postop day #1-ORIF with cephalo-medullary device, right hip by Dr. Celestin Begin PT/OT and weight-bear as tolerated per ortho. Continue Babb until pt has more mobility. Resume Xarelto for atrial fibrillation. Hgb 9.8 today down from 13.0 post-op - will continue to follow. Blood sugars are reviewed and are elevated. He metformin is currently on hold. Patient is not taking po well at this point, will continue to hold metformin and start sliding scale insulin. Blood pressures are stable, pulse improved today. Continue to monitor. On metoprolol 100 mg daily. Based on creatinine clearance by pharmacist (even before her DHRUV) her dosing of Xarelto should be 15mg qd instead of 20qd. This change is made to orders.
--- NOTE | 2017-12-11 08:48 | Progress Note ---
- Date 12/11/17 Subjective: Jesenia was lying in bed, and asked about what all had happened -- she didn't recall falling or having surgery. She thought she was living in [place] and was taken first to a different hospital. She fixated on smoothing out the bedsheets and asked for help. She was in no acute distress but her responses were not reliable. She's been refusing q2h turns in bed. She has been eating and drinking very poorly. Objective Vital signs: Temperature 97.2 F 12/11/17 07:07 Pulse Rate 100 12/11/17 07:07 Respiratory Rate 20 12/11/17 07:07 Blood Pressure 160/75 H 12/11/17 07:07 Pulse Oximetry 96 12/11/17 07:07 Height/Weight/BMI: Height 1.6 m Weight 64.3 kg Body Mass Index 22.1 - Constitutional Present: no acute distress, well nourished, well developed, thin - Routine HEENT Exam Head: Present: normocephalic Eye: Absent: conjunctival icterus - Routine Respiratory Exam Present: CTA bilaterally - Routine Cardiovascular Exam Present: irregularly irregular - Routine Abdominal Exam Present: soft, normoactive bowel sounds, non distended, non tender - Routine Extremities Exam Present: no edema - Routine Skin Exam Present: intact, dry, pallor, warm Comments: dressings to right proximal/distal thigh are c/d/i - Routine Neurological Exam Present: alert. Absent: oriented X3 - Routine Psychiatric Exam Absent: normal thought process Results - Labs CBC & Chem 7: 12/11/17 08:52 12/11/17 08:51 Assessment and Plan Assessment and Plan: Assessment Right hip IT fracture following mechanical fall-s/p open reduction internal fixation with cephalo-medullary device, right hip on 12/09/17 Leukocytosis, suspect stress reaction-resolved Postop acute blood loss anemia DRHUV-not POA Hypomagnesemia Atrial fibrillation, anticoagulated on Xarelto. Hypertension Dyslipidemia. Type 2 diabetes. Chronic kidney disease. Gait instability, history of falling Osteoporosis. Vitamin D & B deficiencies Dementia Gout. History of UTI Sensorineural hearing loss Plan Postop day #2-ORIF with cephalo-medullary device, right hip by Dr. Celestin Repeat labs this am; ABLA noted and pt is on Xarelto for a-fib - noted dose change to 15 mg Poor oral intake - she continues on NS for hydration/DHRUV Hyperglycemia - cont SSI; holding metformin d/t poor oral intake PT/OT Addendum note: Seen and examined patient on same day as the above note nurse practitioner Leda Jc. Agree with above note, physical, assessment and plan Exam: Gen.:no apparent distress, more alert and interactive HEENT: normocephalic atraumatic, oral mucosa moderately dry neck: no lymphadenopathy no jugular venous distention respiratory: there to auscultation bilaterally with good excursion cardiovascular: cardiovascular S1 S2 no adventitious murmurs rubs or gallops abdomen/GI: soft nondistended with bowel sounds extremities: good peripheral perfusion with no edema skin/integument: no significant injuries or edema neuro: appears pleasantly demented at baseline. No focal deficits appreciable psych: alert with moderate confusion and retained social mores Plan: Patient is more alert today however her oral intakes remain poor and her urine output remains 250 recorded by nursing over the 12 hour shift. Will hold overnight. Repeat 250 ML bolus of normal saline and monitor for urinary output. Anticipate discharge tomorrow back to the group home Documented on [employer] speech to text. Efforts to correct speech recognition errors performed, but variation may exist DVT Prophylaxis: Xarelto Resuscitation Status: Do Not Resuscitate - Physician Narrative Narrative: Date: 12/11/17 Time: 0844 Hospital Course Summary Disclaimer: The visit summary below is not to be considered part of the above Progress Note. Hospital Course: 12/09/17 Admit (admitted late on 12/08/17), IP for surgical repair of hip. Surgery performed 12/09/17. D/W Dr. Celestin - ok to give metoprolol PO this am for A-fib with RVR. Check EKG. Per Dr. Celestin - would prefer to get CT scan of hip to determine surgical approach. If he's able to do a gamma nail, could take her to surgery this afternoon. However, if a femoral head replacement is needed, he'd prefer to wait until tomorrow since she's anticoagulated. Xarelto has been held. Replace Mg IV. K is normal. IV NS for elevated BUN/creatinine and since pt is NPO. Hold oral meds except for metoprolol at this time. Monitor blood sugars. [facility] records reviewed. Patient is DNR. Dr. Lozoya notified. Discussed with Dr. Viveros, and the nursing staff. High-risk medications in use. 12/10/17 Postop day #1-ORIF with cephalo-medullary device, right hip by Dr. Celestin Begin PT/OT and weight-bear as tolerated per ortho. Continue Babb until pt has more mobility. Resume Xarelto for atrial fibrillation. Hgb 9.8 today down from 13.0 post-op - will continue to follow. Blood sugars are reviewed and are elevated. He metformin is currently on hold. Patient is not taking po well at this point, will continue to hold metformin and start sliding scale insulin. Blood pressures are stable, pulse improved today. Continue to monitor. On metoprolol 100 mg daily. Based on creatinine clearance by pharmacist (even before her DHRUV) her dosing of Xarelto should be 15mg qd instead of 20qd. This change is made to orders. 12/11/17 Postop day #2-ORIF with cephalo-medullary device, right hip by Dr. Celestin Poor oral intake - she continues on NS for hydration/DHRUV
[2017-12-11] MEDS: NOZIN NASAL SWAB NAS SCH ×3 (09:02→23:12)
--- NOTE | 2017-12-11 10:46 | Discharge Summary ---
Discharge Information Date of admission: 12/08/17 21:53 Anticipated date of discharge: 12/11/17 Attending Physician: Ton Samuel MD Primary care physician: Ashu Lozoya MD Consults: Consulting Provider: Adis Celestin Reason For Exam: Intertrochanteric hip fx, right - Discharge Diagnosis (1) Intertrochanteric fracture of right hip Status: Acute Right hip IT fracture following mechanical fall-s/p open reduction internal fixation with cephalo-medullary device, right hip on 12/09/17 Leukocytosis, suspect stress reaction-resolved Postop acute blood loss anemia DHRUV-not POA Hypomagnesemia - resolved Hypokalemia, not POA Atrial fibrillation, anticoagulated on Xarelto. Hypertension Dyslipidemia. Type 2 diabetes. Chronic kidney disease. Gait instability, history of falling Osteoporosis. Vitamin D & B deficiencies Dementia Gout. History of UTI Sensorineural hearing loss - Laboratory Labs: 12/11/17 08:52 12/11/17 08:51 - Radiology Radiology: Date of Exam: 12/08/17 PROCEDURE: XR pelvis w/ 2 view RT hip: Findings/Impression: Closed posttraumatic mildly displaced intertrochanteric fracture of the right femur. No additional acute fracture or dislocation seen. Mild to moderate degenerative changes in both hips and the pubic symphysis. Surgical clips in the pelvis. Mild apex anterior angulation of the fracture on the crosstable lateral view. = = = = = = = = = = = = = = = = = = = = = = = = = = = = = = = = = = = = = = = = = = = = = = = = = = = = = = = = = = = Date of Exam: 12/08/17 PROCEDURE: CT cervical spine wo con: FINDINGS: The alignment of the cervical spine is normal. Multilevel degenerative changes are present. There is no evidence of acute fracture or subluxation of the cervical spine. The atlantoaxial articulation, dens, and upper cervical spine demonstrate no subluxation. IMPRESSION: No acute traumatic abnormality of the cervical spine. = = = = = = = = = = = = = = = = = = = = = = = = = = = = = = = = = = = = = = = = = = = = = = = = = = = = = = = = = = = Date of Exam: 12/08/17 PROCEDURE: CT head/brain wo con: FINDINGS: Moderate atrophy. The ventricles are of normal size, shape, and configuration for the patient's age. There is no evidence of acute intracranial hemorrhage, midline displacement, or mass effect. There are extensive areas of low attenuation in the white matter which most likely represent changes of chronic microvascular ischemia. The CT attenuation of the brain parenchyma is otherwise normal within the cerebellum, brain stem, and cerebral hemispheres. The tympanic cavities and mastoid air cells are free of appreciable disease. There are no definite fractures of the skull base, calvarium, or visualized portion of the midface. IMPRESSION: No CT evidence of acute traumatic intracranial injury. = = = = = = = = = = = = = = = = = = = = = = = = = = = = = = = = = = = = = = = = = = = = = = = = = = = = = = = = = = = Date of Exam: 12/08/17 PROCEDURE: XR chest 1V: FINDINGS: The lungs are clear. There is no abnormal airspace opacity, pleural effusion or pneumothorax identified. The heart size, pulmonary vasculature and mediastinum are within normal limits. Old healed right fifth lateral rib fracture. IMPRESSION: No acute cardiopulmonary abnormality. = = = = = = = = = = = = = = = = = = = = = = = = = = = = = = = = = = = = = = = = = = = = = = = = = = = = = = = = = = = Date of Exam: 12/09/17 PROCEDURE: XR hip RT min 2V: Findings: Mildly displaced intertrochanteric right femoral fracture is again seen in stable alignment. No new fractures seen. Impression: Stable alignment of the right femoral fracture. = = = = = = = = = = = = = = = = = = = = = = = = = = = = = = = = = = = = = = = = = = = = = = = = = = = = = = = = = = = Date of Exam: 12/09/17 PROCEDURE: XR hip RT 1V: Findings/Impression: Slight decrease in foreshortening at the intertrochanteric femoral fracture. History of Present Illness HPI: Trinity Adame is an 87-year-old female resident of [facility] with a history of atrial fibrillation for which she takes Xarelto, and dementia. She was unable to provide any reliable history, this H&P was obtained from prior records and senior living paperwork. She presented to the emergency department on 12/08/17 after tripping and falling. She reportedly struck her head and injured her right hip. She already had previous bruises from 12/05/17 to her coccyx, left elbow, right hand, and bilateral shoulder blades. In the emergency department, she was diagnosed with an intertrochanteric right hip fracture. Head CT was negative for acute hemorrhage or infarct. C-spine CT was negative for fracture. Chest x-ray was negative. A Babb catheter was inserted. Labs were initially unremarkable, but the following morning, 12/09/17, her white count increased to 13.6, and BUN and creatinine also increased. BUN went up from 18-25 and creatinine started at 1.1 and increased to 1.5. Magnesium level was low at 1.0. She was admitted under the hospitalist service and a consult has been placed to Dr. Celestin. Objective Vital signs: Temperature 97.2 F 12/11/17 07:07 Pulse Rate 100 12/11/17 07:07 Respiratory Rate 20 12/11/17 07:07 Blood Pressure 160/75 H 12/11/17 07:07 Pulse Oximetry 96 12/11/17 07:07 Height/Weight/BMI: Height 1.6 m Weight 64.3 kg Body Mass Index 22.1 Comments: see progress noted dated 12/11/17 Hospital Course This is a general summary of the patient's hospital course. For more details refer to the complete medical record. Hospital course: 12/08/17: ADMIT, right hip fracture. Xarelto placed on hold. Babb inserted. 12/09/17: OP day, ORIF with cephalo-medullary device, right hip by Dr. Celestin. Mg low at 1.0 but K stable. Mg replaced IV. Metoprolol held d/t NPO status. 12/10/17: PT/OT consult. Hgb decreased to 9.8. PO intake low; metformin remained on hold. Cr 1.5; IVF continued. Based on creatinine clearance (even before her DHRUV) her dosing of Xarelto should be 15mg qd instead of 20qd. 12/11/17: K 3.5; replacement was given. Hgb 10.1. Keep metformin on hold d/t elevated creatinine of 1.4 and poor oral intake. UO low - cont. IVF. Time spent with patient: greater than 35 minutes Resuscitation Status: Do Not Resuscitate Discharge Plan - Discharge Disposition Discharge Date: 12/12/17 Disposition: 03 To SNU Not [facility] (SNF) *Condition: Stable Reason For Visit (Visit label in EMR): Hip Fx - Discharge Medications *Discharge Medications: New Acetaminophen [Tylenol] 325 - 650 mg PO Q5H PRN tab PRN Reason: Discomfort Rivaroxaban [Xarelto] 15 mg PO WS tab Continue Alendronate [Fosamax 70 mg] 70 mg PO Q7D Calcium Carbonate/Vitamin D3 [Calcium 500-Vit D3 200 Tablet] 1 tab PO PM Cyanocobalamin (Vitamin B-12) [Vitamin B-12] 1,000 mcg PO DAILY Cholecalciferol (Vitamin D3) [Vitamin D3] 2,000 unit PO DAILY Acetaminophen [Tylenol] 650 mg PO BID PRN PRN Reason: Pain Ondansetron [Zofran Odt] 4 mg PO QID PRN PRN Reason: Nausea Promethazine HCl [Phenergan] 25 mg RECTALLY PRN Tramadol [Ultram] 50 mg PO BID PRN #20 tab PRN Reason: Pain Atorvastatin [Lipitor] 10 mg PO HS Metoprolol Succinate [Toprol Xl] 100 mg PO WB Discontinued Rivaroxaban [Xarelto] 20 mg PO DAILY Metformin [Glucophage] 1,000 mg PO BID - Discharge Packet/Instructions *Diet: Consistent carbohydrate *Activity: PT/OT, WBAT *Pain Management/Treatment: Tramadol/Tylenol PRN *Wound Care: Keep the incisions clean and dry. *Expected Signs/Symptoms: Hip pain; confusion from surgery *Notify Physician if: Fever, redness/drainage at incision sites, shortness of breath, abdominal pain, vomiting, diarrhea, leg swelling, or any acute complaints *During Business Hours Contact: [facility] program *After Business Hours Contact: [facility] program *Pending Lab/Results: No Pending Lab Outpatient Orders: BMP - Basic Metabolic - [facility] Time Frame: 2 Days, Location: None Selected CBC w Auto [id number] Time Frame: 2 Days, Location: None Selected - Referrals/Follow Up *Referrals/Follow Up: Francisco Del Rosario PA [Physician Overlay Operator] - 12/31/17 10:45 am - Patient Handouts Patient Handouts: [facility] Ortho Postop Instructions - Dismissal Complete Discharge Instructions are:: Incomplete Physician Narrative - Narrative Attestation Narrative: Date: 12/11/17 Time: 1049
[2017-12-11] MEDS: HYDROCODONE/APAP 5mg/325mg TABLET PO PRN (15:46)
[2017-12-11] MEDS ORDERED: RIVAROXABAN 15 MG TABLET PO SCH (17:30)
[2017-12-12 04:41] VITALS: O2SAT 94
[2017-12-12] MEDS: INSULIN ASPART 100unit/ml INJECTION SQ PRN (05:57)
[2017-12-12] MEDS: NOZIN NASAL SWAB NAS SCH (07:21)
[2017-12-12 07:35] VITALS: BP 143/86; RESP 18; TEMP 97.8
[2017-12-12 07:37] VITALS: PULSE 98
[2017-12-12] MEDS: NS 1,000 ML IV SCH (08:50)
--- NOTE | 2017-12-12 09:20 | Orthopedic Progress Note ---
Date: Date: 12/12/17 Time: 917 Subjective/Severity of Illness: Doing okay. Denies much hip pain. Doesn't remember meeting me yesterday. Nursing reports pt has been more pleasant and talkative. Denies CP or SOA. Orthopedic Exam Vital signs: Temperature 97.0 F 12/10/17 04:00 Pulse Rate 95 12/10/17 04:00 Respiratory Rate 16 12/10/17 04:00 Blood Pressure 116/62 12/10/17 04:00 Pulse Oximetry 93 12/10/17 04:00 - Constitutional General Appearance: Present: alert, cooperative, no acute distress - Respiratory Exam Present: non-labored - Cardiovascular Exam Present: pedal pulses intact - Abdominal Exam Present: soft. Absent: tenderness - Extremities Exam Present: no edema, pulses intact - Dressing Dressing: dry, intact, no drainage - Integumentary Exam Present: pink, warm, dry - Neurological Exam Present: no deficits - Psychiatric Exam Present: alert. Absent: oriented - Labs Result Diagrams: 12/12/17 04:07 12/12/17 04:07 Abnormal lab results 12/11/17 12/11/17 12/12/17 Range/Units 08:51 08:52 04:07 WBC 11.3 H (4.5-11.0) T/MM3 RBC 3.20 L 3.09 L (4.00-5.20) M/MM3 Hgb 10.1 L 9.9 L (12-16) GM/DL Hct 31.1 L 31.4 L (36-46) % MCV 101.6 H (80-100) UM3 RDW Std Deviation 50.5 H (36.9-50.2) FL MPV 12.7 H 12.6 H (9.4-12.4) UM3 Neut % (Auto) 82.1 H (33-66) % Lymph % (Auto) 11.6 L (23-45) % Neut # (Auto) 8.4 H (1.8-7.7) T/MM3 Neutrophils % (Manual) 85.0 H (33-66) % Lymphocytes % (Manual) 15.0 L (23-45) % Neutrophils # (Manual) 9.6 H (1.8-7.7) T/MM3 Potassium 3.5 L D (3.6-5) MEQ/L Chloride 112 H (98-107) MEQ/L Carbon Dioxide (22-30) MEQ/L BUN 38.0 H (7-17) MG/DL Creatinine 1.4 H (0.7-1.2) mg/dL BUN/Creatinine Ratio 27 H (6-26) RATIO Glucose 138 H (65-110) MG/DL Calculated Osmolality 288 H (261-280) MOSM/KG Calcium 7.4 L D (8.4-10.2) MG/DL Specimen Hemolysis (0-25) 12/12/17 Range/Units 04:07 WBC (4.5-11.0) T/MM3 RBC (4.00-5.20) M/MM3 Hgb (12-16) GM/DL Hct (36-46) % MCV (80-100) UM3 RDW Std Deviation (36.9-50.2) FL MPV (9.4-12.4) UM3 Neut % (Auto) (33-66) % Lymph % (Auto) (23-45) % Neut # (Auto) (1.8-7.7) T/MM3 Neutrophils % (Manual) (33-66) % Lymphocytes % (Manual) (23-45) % Neutrophils # (Manual) (1.8-7.7) T/MM3 Potassium (3.6-5) MEQ/L Chloride 111 H (98-107) MEQ/L Carbon Dioxide 21 L (22-30) MEQ/L BUN 36.0 H (7-17) MG/DL Creatinine (0.7-1.2) mg/dL BUN/Creatinine Ratio 36 H (6-26) RATIO Glucose 151 H (65-110) MG/DL Calculated Osmolality (261-280) MOSM/KG Calcium 7.5 L (8.4-10.2) MG/DL Specimen Hemolysis 48 H (0-25) H & H 12/08/17 12/09/17 12/10/17 Range/Units 20:04 05:20 04:32 Hgb 14.1 13.0 9.8 L D (12-16) GM/DL Hct 43.0 39.5 31.1 L D (36-46) % 12/11/17 12/12/17 Range/Units 08:52 04:07 Hgb 10.1 L 9.9 L (12-16) GM/DL Hct 31.1 L 31.4 L (36-46) % Orthopedic Assessment and Plan (1) Intertrochanteric fracture of right hip Status: Acute Qualifiers: Encounter type: initial encounter Fracture type: closed Fracture alignment: displaced Qualified Code(s): S72.141A - Displaced intertrochanteric fracture of right femur, initial encounter for closed fracture Assessment and Plan: Continue PT / OT. WBAT. May resume Xarelto. SCDs for added DVT coverage. Plan f/u 12/31/17 for xray check. - Anticoagulation Therapy Anticoagulation: Resume home anticoagulant Hospital Course Summary Disclaimer: The visit summary below is not to be considered part of the above Progress Note. Hospital Course: 12/09/17 Admit (admitted late on 12/08/17), IP for surgical repair of hip. Surgery performed 12/09/17. D/W Dr. Celestin - ok to give metoprolol PO this am for A-fib with RVR. Check EKG. Per Dr. Celestin - would prefer to get CT scan of hip to determine surgical approach. If he's able to do a gamma nail, could take her to surgery this afternoon. However, if a femoral head replacement is needed, he'd prefer to wait until tomorrow since she's anticoagulated. Xarelto has been held. Replace Mg IV. K is normal. IV NS for elevated BUN/creatinine and since pt is NPO. Hold oral meds except for metoprolol at this time. Monitor blood sugars. [facility] records reviewed. Patient is DNR. Dr. Lozoya notified. Discussed with Dr. Viveros, and the nursing staff. High-risk medications in use. 12/10/17 Postop day #1-ORIF with cephalo-medullary device, right hip by Dr. Celestin Begin PT/OT and weight-bear as tolerated per ortho. Continue Babb until pt has more mobility. Resume Xarelto for atrial fibrillation. Hgb 9.8 today down from 13.0 post-op - will continue to follow. Blood sugars are reviewed and are elevated. He metformin is currently on hold. Patient is not taking po well at this point, will continue to hold metformin and start sliding scale insulin. Blood pressures are stable, pulse improved today. Continue to monitor. On metoprolol 100 mg daily. Based on creatinine clearance by pharmacist (even before her DHRUV) her dosing of Xarelto should be 15mg qd instead of 20qd. This change is made to orders. 12/11/17 Postop day #2-ORIF with cephalo-medullary device, right hip by Dr. Celestin Poor oral intake - she continues on NS for hydration/DHRUV
--- NOTE | 2017-12-12 11:46 | Extended Care Facility Orders ---
Admission Orders Admit to:: Custodial Allergies/Adverse Reactions: Allergies No Known Allergies Allergy (Verified 12/08/17 19:58) Admitting Diagnosis: Hip Fx Admitting Physician: Ton Samuel MD Attending Physician: Ton Samuel MD Code Status: Do Not Resuscitate Anticiapted Length of Stay: 30 days or less Rehab Potential: fair Rehab Prognosis: fair, good Diet: 12/10/17 Breakfast Consistent Carbohydrate Diet [DIET] Calorie Level: 1999 May use Facility Protocol or Standing Orders: Yes May have flu vaccine: Yes Evaluations/Treatment: PT, OT Custodial Certification: I certify that SNF services are required to be given on an Inpatient basis because of the patients need for long-term care on a continuing basis for the condition(s) for which he/she received inpatient hospital services prior to his/her transfer to the SNF. SNF inpatient care is necessary for the following reasons - Additional Information In Event of Arrest: Do Not Start CPR Referrals: Francisco Del Rosario PA [Physician Gastroenterology Teacher] - 12/31/17 10:45 am
--- NOTE | 2017-12-12 11:50 | Discharge Summary ---
Discharge Information Date of admission: 12/08/17 21:53 Anticipated date of discharge: 12/12/17 Attending Physician: Ton Samuel MD Primary care physician: Ashu Lozoya MD Consults: 12/08/17 21:53 Physician Consult [CONS] Routine Consulting Provider: Adis Celestin Reason For Exam: Intertrochanteric hip fx, right Ordering Provider has Notified Biology Manager: Yes 12/08/17 22:47 Physician Consult [CONS] Routine Consulting Provider: Adis Celestin Reason For Exam: hip fx Ordering Provider has Notified Biology Manager: Yes 12/09/17 11:36 Physician Consult [CONS] Routine Consulting Provider: Lauren Liu Reason For Exam: CONT CARE Ordering Provider has Notified Biology Manager: Yes 12/10/17 10:57 Physician Consult [CONS] [facility] Reason For Exam: CONT CARE Ordering Provider has Notified Biology Manager: Yes - Discharge Diagnosis (1) Intertrochanteric fracture of right hip Status: Acute (2) A-fib Status: Acute (3) Fall Status: Acute - Laboratory Labs: 12/12/17 04:07 12/12/17 04:07 History of Present Illness HPI: Trinity Adame is an 87-year-old female resident of [facility] with a history of atrial fibrillation for which she takes Xarelto, and dementia. She was unable to provide any reliable history, this H&P was obtained from prior records and alf paperwork. She presented to the emergency department on 12/08/17 after tripping and falling. She reportedly struck her head and injured her right hip. She already had previous bruises from 12/05/17 to her coccyx, left elbow, right hand, and bilateral shoulder blades. In the emergency department, she was diagnosed with an intertrochanteric right hip fracture. Head CT was negative for acute hemorrhage or infarct. C-spine CT was negative for fracture. Chest x-ray was negative. A Babb catheter was inserted. Labs were initially unremarkable, but the following morning, 12/09/17, her white count increased to 13.6, and BUN and creatinine also increased. BUN went up from 18-25 and creatinine started at 1.1 and increased to 1.5. Magnesium level was low at 1.0. She was admitted under the hospitalist service and a consult has been placed to Dr. Celestin. Objective Vital signs: Temperature 97.8 F 12/12/17 07:33 Pulse Rate 98 12/12/17 07:33 Respiratory Rate 18 12/12/17 07:33 Blood Pressure 143/86 H 12/12/17 07:33 Pulse Oximetry 94 12/12/17 07:33 Rhythm: Atrial Fibrillation with Normal Ventricular Rate Height/Weight/BMI: Height 5 ft 3 in Weight 67.2 kg Body Mass Index 22.1 - Constitutional Present: well nourished, well developed - Routine HEENT Exam Eye: Present: EOMI ENT: Present: mucous membranes moist, dentition normal - Routine Respiratory Exam Present: CTA bilaterally. Absent: wheezes - Routine Cardiovascular Exam Present: RRR. Absent: murmur - Routine Abdominal Exam Present: soft, normoactive bowel sounds, non distended. Absent: tenderness - Routine Extremities Exam Present: normal capillary refill, tenderness - Routine Musculoskeletal Exam Musculoskeletal: Absent: no joint swelling, no erythema - Routine Skin Exam Present: dry, warm, scars - Routine Neurological Exam Present: alert, CN II-XII intact. Absent: oriented X3 - Routine Lymphatic Exam Lymphatic: Absent: adenopathy - Routine Psychiatric Exam Present: normal affect, cooperative. Absent: good insight, good judgment Hospital Course Patient discharge yesterday was delayed due to poor urine output. Babb has been discontinued and patient has been urdy 5 ML of normal saline since December 08. She is free to discharge when she has had urine output after Babb removal. For further details see discharge summary from yesterday This is a general summary of the patient's hospital course. For more details refer to the complete medical record. Hospital course: 12/09/17 Admit (admitted late on 12/08/17), IP for surgical repair of hip. Surgery performed 12/09/17. D/W Dr. Celestin - ok to give metoprolol PO this am for A-fib with RVR. Check EKG. Per Dr. Celestin - would prefer to get CT scan of hip to determine surgical approach. If he's able to do a gamma nail, could take her to surgery this afternoon. However, if a femoral head replacement is needed, he'd prefer to wait until tomorrow since she's anticoagulated. Xarelto has been held. Replace Mg IV. K is normal. IV NS for elevated BUN/creatinine and since pt is NPO. Hold oral meds except for metoprolol at this time. Monitor blood sugars. Lauren Liu records reviewed. Patient is DNR. Dr. Lozoya notified. Discussed with Dr. Viveros, and the nursing staff. High-risk medications in use. 12/10/17 Postop day #1-ORIF with cephalo-medullary device, right hip by Dr. Celestin Begin PT/OT and weight-bear as tolerated per ortho. Continue Babb until pt has more mobility. Resume Xarelto for atrial fibrillation. Hgb 9.8 today down from 13.0 post-op - will continue to follow. Blood sugars are reviewed and are elevated. He metformin is currently on hold. Patient is not taking po well at this point, will continue to hold metformin and start sliding scale insulin. Blood pressures are stable, pulse improved today. Continue to monitor. On metoprolol 100 mg daily. Based on creatinine clearance by pharmacist (even before her DHRUV) her dosing of Xarelto should be 15mg qd instead of 20qd. This change is made to orders. 12/11/17 Postop day #2-ORIF with cephalo-medullary device, right hip by Dr. Celestin Poor oral intake - she continues on NS for hydration/DHRUV Time spent with patient: 25 - 35 minutes Resuscitation Status: Do Not Resuscitate Discharge Plan - Discharge Disposition Discharge Date: 12/12/17 Disposition: 03 To SNU Not [facility] ([place]) *Condition: Stable Reason For Visit (Visit label in EMR): Hip Fx - Discharge Medications *Discharge Medications: New Acetaminophen [Tylenol] 325 - 650 mg PO Q5H PRN tab PRN Reason: Discomfort Rivaroxaban [Xarelto] 15 mg PO WS tab Continue Alendronate [Fosamax 70 mg] 70 mg PO Q7D Calcium Carbonate/Vitamin D3 [Calcium 500-Vit D3 200 Tablet] 1 tab PO PM Cyanocobalamin (Vitamin B-12) [Vitamin B-12] 1,000 mcg PO DAILY Cholecalciferol (Vitamin D3) [Vitamin D3] 2,000 unit PO DAILY Acetaminophen [Tylenol] 650 mg PO BID PRN PRN Reason: Pain Ondansetron [Zofran Odt] 4 mg PO QID PRN PRN Reason: Nausea Promethazine HCl [Phenergan] 25 mg RECTALLY PRN Tramadol [Ultram] 50 mg PO BID PRN #20 tab PRN Reason: Pain Atorvastatin [Lipitor] 10 mg PO HS Metoprolol Succinate [Toprol Xl] 100 mg PO WB Discontinued Rivaroxaban [Xarelto] 20 mg PO DAILY Metformin [Glucophage] 1,000 mg PO BID - Discharge Packet/Instructions *Diet: Consistent carbohydrate *Activity: PT/OT, WBAT *Pain Management/Treatment: Tramadol/Tylenol PRN *Wound Care: Keep the incisions clean and dry. Additional Instructions: WBAT. *Expected Signs/Symptoms: Hip pain; confusion from surgery *Notify Physician if: Fever, redness/drainage at incision sites, shortness of breath, abdominal pain, vomiting, diarrhea, leg swelling, or any acute complaints *During Business Hours Contact: [facility] program *After Business Hours Contact: [facility] program *Pending Lab/Results: No Pending Lab Outpatient Orders: BMP - Basic Metabolic - [facility] Time Frame: 2 Days, Location: None Selected CBC w Auto [id number] Time Frame: 2 Days, Location: None Selected - Referrals/Follow Up *Referrals/Follow Up: Francisco Del Rosario PA [Physician Enterprise Security Architect] - 12/31/17 10:45 am - Patient Handouts Patient Handouts: [facility] [place] Ortho Postop Instructions - Dismissal Complete Discharge Instructions are:: Complete Physician Narrative - Narrative Physician: other Attestation Narrative: Date: 12/12/17 Time: 1147
== END 2017-12-12 13:05 | DRG 481 ==
LOC: ED 19:44 → EDHOLD 21:53 → SUATTDRO 21:53 → SRG 22:37
PROVIDERS: ADMIT Hospitalist; ATTEND Family Medicine